=== PATIENT | female | born 1935 | race American Indian/Alaskan Native ===

== ENCOUNTER 2020-08-22 16:52 | Inpatient (IN) | payer MEDICARE ==
[2020-08-22] MEDS ORDERED: ETOMIDATE 20 MG/10 ML INJ IV ONE (17:30)
[2020-08-22] MEDS ORDERED: SUCCINYLCHOLINE CHLORIDE 200 MG/10 ML INJ MDV ONE ×2 (17:30)
[2020-08-22] MEDS ORDERED: DEXTROSE 50% IN WATER (25GM) 50 ML SYRINGE IV ONE (17:54)
--- NOTE | 2020-08-22 18:05 | Emergency Department Report ---
HPI - General Time Seen by Provider: 08/22/20 17:17 - HPI HPI: Room 23 The patient is an 85-year-old female present with a chief complaint of unresponsiveness. Patient's daughter states she brought the patient to the hospital after instructions from primary physician. The daughter states the patient has been complaining of abdominal pain for 1 day. The patient went to her primary physician's office yesterday and had blood work drawn. Family states he received a call from the primary physician today instructing the patient to come to the ED because she may be "dehydrated." The daughter states no further information was given regarding labs. Upon arrival to the ED the patient was found to be obtunded with agonal respirations as I enter the room. The patient soon lost her pulse and ACLS protocols were initiated. The patient was intubated by myself and with ACLS protocols there was return of spontaneous circulation ED Past Medical Hx - Past Medical History Hx Hypertension: Yes Hx CVA: Yes (2007) Hx Seizures: Yes Hx Dementia: Yes Additional medical history: Hypothyroidism, Depression, Hypokalemia - Surgical History Past Surgical History?: No - Family History Family history: no significant - Social History Smoking Status: Never Smoker Substance Use Type: None - Medications Home Medications: Home Medications Medication Instructions Recorded Confirmed Last Taken Type Levothyroxine [Synthroid] 50 mcg PO QAM 11/29/17 11/29/17 11/28/17 06:00 History Sertraline [Zoloft] 50 mg PO QDAY 11/29/17 11/29/17 11/28/17 History amLODIPine 5 mg pe PO QDAY 11/29/17 11/29/17 11/29/17 History Aspirin 81 mg PO DAILY #30 tab.chew 12/01/17 Unknown Rx Phenytoin [Dilantin] 100 mg PO Q8HR #60 capsule 12/01/17 Unknown Rx ED Review of Systems ROS: Stated complaint: ABDOMINAL PAIN Other details as noted in HPI Comment: Unobtainable due to pts medical conditions Physical Exam - Physical Exam Physical Exam: GENERAL: The patient is well-developed well-nourished elderly female lying on stretcher with agonal respirations. [] HEENT: Normocephalic. Atraumatic. NECK: Supple. Trachea midline CHEST/LUNGS: Clear to auscultation. Agonal respirations HEART/CARDIOVASCULAR: Regular. There is bradycardia at 44 bpm on the monitor. There is no gallop rub or murmur. ABDOMEN: Abdomen is soft, nontender. Patient has normal bowel sounds. There is no abdominal distention. SKIN: There is no rash. There is no edema. There is no diaphoresis. NEURO: GCS 3 with agonal respirations MUSCULOSKELETAL: There is no evidence of acute injury. ED Course - Consultations Consultation #1: 08/22/20 21:11 Surgery paged 08/22/20 21:[address] with surgeon Dr[address] Cortez - Central Line Placement Right Femoral Consent Obtained: emergent situation Time Out Performed: No Patient Placed on Monitor/Pulse Ox: Yes MD Prep: mask, gloves Central Line Prep: Chlorhexidine scrub Ultrasound Used for Placement: No Central Line Lumen Inserted: triple Reason for Insertion: Emergency Venous Access Bloods Obtained for Lab: No Central Line Position: good blood return Dressing Applied: Tegaderm Patient Tolerated Procedure: no complications Complications: none - Intubation Time Out Performed: No Laryngoscope: Linda Size: 3 ET Tube Size: 7 Tube Secured Depth (cm): 21 Tube Secured Location: lips Tube Placement Confirmation: equal breath sounds bilat, no breath sounds over epi Patient Tolerated Procedure: no complications Intubation Complications: none ED Medical Decision Making - Lab Data Result diagrams: 08/22/20 18:17 08/22/20 18:17 Laboratory Tests 08/22/20 08/22/20 08/22/20 17:46 17:53 18:17 WBC 7.9 RBC 3.60 L Hgb 10.9 Hct 33.0 MCV 92 MCH 30 MCHC 33 RDW 14.6 Plt Count 97 L Add Manual Diff Complete Total Counted 100 Seg Neuts % (Manual) 80.0 H Lymphocytes % (Manual) 13.0 L Monocytes % (Manual) 7.0 Nucleated RBC % Not Reportable Seg Neutrophils # Man 6.3 Band Neutrophils # 0.0 Lymphocytes # (Manual) 1.0 L Abs React Lymphs (Man) 0.0 Monocytes # (Manual) 0.6 Eosinophils # (Manual) 0.0 Basophils # (Manual) 0.0 Metamyelocytes # 0.0 Myelocytes # 0.0 Promyelocytes # 0.0 Blast Cells # 0.0 WBC Morphology Not Reportable Hypersegmented Neuts Not Reportable Hyposegmented Neuts Not Reportable Hypogranular Neuts Not Reportable Smudge Cells Not Reportable Toxic Granulation Not Reportable Toxic Vacuolation Not Reportable Dohle Bodies Not Reportable Pelger-Huet Anomaly Not Reportable Edouard Rods Not Reportable Platelet Estimate Not Reportable Clumped Platelets Not Reportable Plt Clumps, EDTA Not Reportable Large Platelets Not Reportable Giant Platelets Not Reportable Platelet Satelliting Not Reportable Plt Morphology Comment Not Reportable RBC Morphology Normal Dimorphic RBCs Not Reportable Polychromasia Not Reportable Hypochromasia Not Reportable Poikilocytosis Not Reportable Anisocytosis Not Reportable Microcytosis Not Reportable Macrocytosis Not Reportable Spherocytes Not Reportable Pappenheimer Bodies Not Reportable Sickle Cells Not Reportable Target Cells Not Reportable Tear Drop Cells Not Reportable Ovalocytes Not Reportable Helmet Cells Not Reportable Jimenez-Mcgovern Bodies Not Reportable [place] Rings Not Reportable [place] Cells Not Reportable Bite Cells Not Reportable Crenated Cell Not Reportable Elliptocytes Not Reportable Acanthocytes (Spur) Not Reportable Rouleaux Not Reportable Hemoglobin C Crystals Not Reportable Schistocytes Not Reportable Malaria parasites Not Reportable Reginaldo Bodies Not Reportable Hem Pathologist Commnt No PT INR APTT Sodium Potassium Chloride Carbon Dioxide Anion Gap BUN Creatinine Estimated GFR BUN/Creatinine Ratio Glucose POC Glucose < 10 L < 10 L Lactic Acid Calcium Total Bilirubin AST ALT Alkaline Phosphatase Total Creatine Kinase CK-MB (CK-2) CK-MB (CK-2) Rel Index Troponin T NT-Pro-B Natriuret Pep Total Protein Albumin Albumin/Globulin Ratio Lipase TSH Free T4 Urine Color Urine Turbidity Urine pH Ur Specific Gaastra Urine Protein Urine Glucose (UA) Urine Ketones Urine Blood Urine Nitrite Urine Bilirubin Urine Urobilinogen Ur Leukocyte Esterase Urine WBC (Auto) Urine RBC (Auto) U Epithel Cells (Auto) Urine Bacteria (Auto) Urine WBC Clumps Urine Mucus Urine Yeast (Budding) Phenytoin 08/22/20 08/22/20 08/22/20 18:17 18:17 18:17 WBC RBC Hgb Hct MCV MCH MCHC RDW Plt Count Add Manual Diff Total Counted Seg Neuts % (Manual) Lymphocytes % (Manual) Monocytes % (Manual) Nucleated RBC % Seg Neutrophils # Man Band Neutrophils # Lymphocytes # (Manual) Abs React Lymphs (Man) Monocytes # (Manual) Eosinophils # (Manual) Basophils # (Manual) Metamyelocytes # Myelocytes # Promyelocytes # Blast Cells # WBC Morphology Hypersegmented Neuts Hyposegmented Neuts Hypogranular Neuts Smudge Cells Toxic Granulation Toxic Vacuolation Dohle Bodies Pelger-Huet Anomaly Edouard Rods Platelet Estimate Clumped Platelets Plt Clumps, EDTA Large Platelets Giant Platelets Platelet Satelliting Plt Morphology Comment RBC Morphology Dimorphic RBCs Polychromasia Hypochromasia Poikilocytosis Anisocytosis Microcytosis Macrocytosis Spherocytes Pappenheimer Bodies Sickle Cells Target Cells Tear Drop Cells Ovalocytes Helmet Cells Jimenez-Mcgovern Bodies [place] Rings Michelle Cells Bite Cells Crenated Cell Elliptocytes Acanthocytes (Spur) Rouleaux Hemoglobin C Crystals Schistocytes Malaria parasites Reginaldo Bodies Hem Pathologist Commnt PT 34.0 H INR 3.35 H APTT 190.7 H* Sodium 141 Potassium 4.3 Chloride 94.7 L Carbon Dioxide 13 L Anion Gap 38 BUN 49 H Creatinine 3.4 H Estimated GFR 15 BUN/Creatinine Ratio 14 Glucose 808 H* POC Glucose Lactic Acid 14.10 H* Calcium 7.3 L Total Bilirubin 0.70 AST 253 H ALT 119 H Alkaline Phosphatase 145 H Total Creatine Kinase 364 H CK-MB (CK-2) 6.6 H CK-MB (CK-2) Rel Index 1.8 Troponin T 0.026 NT-Pro-B Natriuret Pep 3839 H Total Protein 4.5 L Albumin 2.3 L Albumin/Globulin Ratio 1.0 Lipase 10 L TSH Free T4 Urine Color Urine Turbidity Urine pH Ur Specific Gaastra Urine Protein Urine Glucose (UA) Urine Ketones Urine Blood Urine Nitrite Urine Bilirubin Urine Urobilinogen Ur Leukocyte Esterase Urine WBC (Auto) Urine RBC (Auto) U Epithel Cells (Auto) Urine Bacteria (Auto) Urine WBC Clumps Urine Mucus Urine Yeast (Budding) Phenytoin 08/22/20 08/22/20 08/22/20 18:17 18:17 19:08 WBC RBC Hgb Hct MCV MCH MCHC RDW Plt Count Add Manual Diff Total Counted Seg Neuts % (Manual) Lymphocytes % (Manual) Monocytes % (Manual) Nucleated RBC % Seg Neutrophils # Man Band Neutrophils # Lymphocytes # (Manual) Abs React Lymphs (Man) Monocytes # (Manual) Eosinophils # (Manual) Basophils # (Manual) Metamyelocytes # Myelocytes # Promyelocytes # Blast Cells # WBC Morphology Hypersegmented Neuts Hyposegmented Neuts Hypogranular Neuts Smudge Cells Toxic Granulation Toxic Vacuolation Dohle Bodies Pelger-Huet Anomaly Edouard Rods Platelet Estimate Clumped Platelets Plt Clumps, EDTA Large Platelets Giant Platelets Platelet Satelliting Plt Morphology Comment RBC Morphology Dimorphic RBCs Polychromasia Hypochromasia Poikilocytosis Anisocytosis Microcytosis Macrocytosis Spherocytes Pappenheimer Bodies Sickle Cells Target Cells Tear Drop Cells Ovalocytes Helmet Cells Jimenez-Mcgovern Bodies [place] Rings Michelle Cells Bite Cells Crenated Cell Elliptocytes Acanthocytes (Spur) Rouleaux Hemoglobin C Crystals Schistocytes Malaria parasites Reginaldo Bodies Hem Pathologist Commnt PT INR APTT Sodium Potassium Chloride Carbon Dioxide Anion Gap BUN Creatinine Estimated GFR BUN/Creatinine Ratio Glucose POC Glucose Lactic Acid 13.00 H* Calcium Total Bilirubin AST ALT Alkaline Phosphatase Total Creatine Kinase CK-MB (CK-2) CK-MB (CK-2) Rel Index Troponin T NT-Pro-B Natriuret Pep Total Protein Albumin Albumin/Globulin Ratio Lipase TSH 11.260 H Free T4 0.90 Urine Color Urine Turbidity Urine pH Ur Specific Gaastra Urine Protein Urine Glucose (UA) Urine Ketones Urine Blood Urine Nitrite Urine Bilirubin Urine Urobilinogen Ur Leukocyte Esterase Urine WBC (Auto) Urine RBC (Auto) U Epithel Cells (Auto) Urine Bacteria (Auto) Urine WBC Clumps Urine Mucus Urine Yeast (Budding) Phenytoin 1.8 L 08/22/20 08/22/20 21:11 Unknown WBC RBC Hgb Hct MCV MCH MCHC RDW Plt Count Add Manual Diff Total Counted Seg Neuts % (Manual) Lymphocytes % (Manual) Monocytes % (Manual) Nucleated RBC % Seg Neutrophils # Man Band Neutrophils # Lymphocytes # (Manual) Abs React Lymphs (Man) Monocytes # (Manual) Eosinophils # (Manual) Basophils # (Manual) Metamyelocytes # Myelocytes # Promyelocytes # Blast Cells # WBC Morphology Hypersegmented Neuts Hyposegmented Neuts Hypogranular Neuts Smudge Cells Toxic Granulation Toxic Vacuolation Dohle Bodies Pelger-Huet Anomaly Edouard Rods Platelet Estimate Clumped Platelets Plt Clumps, EDTA Large Platelets Giant Platelets Platelet Satelliting Plt Morphology Comment RBC Morphology Dimorphic RBCs Polychromasia Hypochromasia Poikilocytosis Anisocytosis Microcytosis Macrocytosis Spherocytes Pappenheimer Bodies Sickle Cells Target Cells Tear Drop Cells Ovalocytes Helmet Cells Jimenez-Mcgovern Bodies [place] Rings Michelle Cells Bite Cells Crenated Cell Elliptocytes Acanthocytes (Spur) Rouleaux Hemoglobin C Crystals Schistocytes Malaria parasites Reginaldo Bodies Hem Pathologist Commnt PT INR APTT Sodium Potassium Chloride Carbon Dioxide Anion Gap BUN Creatinine Estimated GFR BUN/Creatinine Ratio Glucose POC Glucose Lactic Acid 10.50 H* Calcium Total Bilirubin AST ALT Alkaline Phosphatase Total Creatine Kinase CK-MB (CK-2) CK-MB (CK-2) Rel Index Troponin T NT-Pro-B Natriuret Pep Total Protein Albumin Albumin/Globulin Ratio Lipase TSH Free T4 Urine Color Jennifer Urine Turbidity Cloudy Urine pH 5.0 Ur Specific Gaastra 1.017 Urine Protein 100 mg/dl Urine Glucose (UA) Neg Urine Ketones Neg Urine Blood Sm Urine Nitrite Neg Urine Bilirubin Neg Urine Urobilinogen 4.0 Ur Leukocyte Esterase Neg Urine WBC (Auto) 30.0 H Urine RBC (Auto) 22.0 U Epithel Cells (Auto) 24.0 H Urine Bacteria (Auto) 1+ Urine WBC Clumps 2+ Urine Mucus 2+ Urine Yeast (Budding) 2+ Phenytoin - EKG Data -: EKG Interpreted by Me EKG shows normal: sinus rhythm Rate: normal - EKG Data When compared to previous EKG there are: previous EKG unavailable Interpretation: nonspecific ST-T wave [place] - Radiology Data Radiology results: report reviewed (Chest x-ray, CT abdomen pelvis), image reviewed (Chest x-ray, CT abdomen pelvis) interpreted by me: Chest x-ray-ET tube in appropriate position. No pneumothorax. No foreign body seen [facility] [address] [place] [address] Cat Scan Report Signed Patient: CAMACHO CORDON MR#: [id number] 4 : 1935 Acct:[id number] Age/Sex: 85 / F ADM Date: 08/22/20 Loc: ED Attending Dr: Ordering Physician: ANNY BARRETT MD Date of Service: 08/22/20 Procedure(s): CT abdomen pelvis wo con Accession Number(s): [id number] cc: ANNY BARRETT MD CT ABDOMEN AND PELVIS WITHOUT CONTRAST INDICATION / CLINICAL INFORMATION: Free air on chest x-ray, status post cardiac arrest. TECHNIQUE: Axial CT images were obtained through the abdomen and pelvis without IV contrast. All CT scans at this location are performed using CT dose reduction for ALARA by means of automated exposure control. COMPARISON: Chest radiograph earlier on the same date FINDINGS: LOWER CHEST: Bibasilar bronchiectasis with bibasilar airspace disease and small left pleural effusion. LIVER: Small simple appearing cyst and benign calcified granuloma. GALLBLADDER: Numerous small calcified gallstones filling the gallbladder but no wall thickening or inflammation. BILE DUCTS: No significant abnormality. PANCREAS: No significant abnormality. SPLEEN: Calcified granulomas but no significant abnormality. ADRENALS: No significant abnormality. RIGHT KIDNEY / URETER: No significant abnormality. LEFT KIDNEY / URETER: No significant abnormality. STOMACH / SMALL BOWEL: Esophagogastric tube is present in the stomach. Fluid-filled, mildly thickened small bowel loops without obstruction. There is some twisting of the mesentery in the left midabdomen. No site of perforation identified. COLON: Moderately distended colon containing material. No site of perforation identified. APPENDIX: Not visualized. PERITONEUM: Small to moderate amount of free fluid in the abdomen and pelvis. Moderate to large amount of free air in the anterior abdominal cavity. No fluid collection. LYMPH NODES: No significant adenopathy. AORTA / ARTERIES: Moderate atherosclerotic calcification without acute abnormality. Mild aneurysmal dilatation of the mid infrarenal abdominal aorta measuring 3.1 cm in greatest AP dimension. IVC / VEINS: Right femoral venous catheter is present in the right common femoral vein. URINARY BLADDER: Contracted around a Siddiqui catheter. REPRODUCTIVE ORGANS: Uterus is absent. No significant adnexal abnormality. ADDITIONAL FINDINGS: None. SKELETAL SYSTEM: No significant abnormality. IMPRESSION: 1. Moderate to large amount of free air in the abdominal cavity without definite source identified. This degree of free air suggests bowel perforation of undetermined location. 2. Twisting of the mesentery in the left midabdomen could represent internal hernia. No definite bowel obstruction. 3. Moderate amount of free fluid throughout the abdomen. 4. Bibasilar airspace disease with small left pleural effusion. Signer Name: Avi Bullard MD Signed: 08/22/2020 9:19 PM Workstation Name: [id number] Transcribed By: KELLEN Dictated By: Elpidio Bullard MD Electronically Authenticated By: Elpidio Bullard MD Signed Date/Time: 08/22/202118 DD/ 10 TD/TT: Print [facility] [address] [place] [address] XRay Report Signed Patient: CAMACHO CORDON MR#: [id number] 4 : 1935 Acct:[id number] Age/Sex: 85 / F ADM Date: 08/22/20 Loc: ED Attending Dr: Ordering Physician: ANNY BARRETT MD Date of Service: 08/22/20 Procedure(s): XR chest 1V ap Accession Number(s): [id number] cc: ANNY BARRETT MD Fluoro Time In Minutes: CHEST 1 VIEW 08/22/2020 5:38 PM INDICATION / CLINICAL INFORMATION: Card iac arrest status post intubation. COMPARISON: 06/03/20 FINDINGS: SUPPORT DEVICES: Endotracheal tube has been placed with the tip 1.3 cm above the andrae. Esophagogastric tube has been placed below the diaphragm into the stomach. HEART / MEDIASTINUM: Stable. LUNGS / PLEURA: Patchy bilateral pulmonary opacities. No pneumothorax. ADDITIONAL FINDINGS: Moderate amount of free air in the upper abdomen beneath the hemidiaphragm. IMPRESSION: 1. Endotracheal tube in expected position. 2. CRITICAL RESULT Time of Discovery (LAP WELDER/CDT): 5:45 PM Time of Communication (LAP WELDER/CDT): 5:50 PM Licensed Practitioner Receiving Report: Dr. Barrett Signer Name: Avi Bullard MD Signed: 08/22/2020 6:49 PM Workstation Name: [id number] Transcribed By: DT Dictated By: Elpidio Bullard MD Electronically Authenticated By: Elpidio Bullard MD Signed Date/Time: 08/22/201848 DD/ 46 TD/TT: Print Cancel - Differential Diagnosis Cardiac arrest, acute renal failure, hypoglycemia Critical care attestation.: If time is entered above; I have spent that time in minutes in the direct care of this critically ill patient, excluding procedure time. ED Disposition Clinical Impression: Cardiac arrest, Bowel perforation, Pneumonia Disposition: [id number] OP ADMIT IP TO THIS HOSP Is pt being admited?: Yes Does the pt Need Aspirin: No Condition: Serious Instructions: Bacterial Pneumonia (ED) Time of Disposition: 22:03 (Hospitalist notified (Dr Matthew))
[2020-08-22] MEDS ORDERED: SODIUM CHLORIDE 0.9% 1000 ML 1,000 ML ONE ×2 (18:12→18:40)
[2020-08-22 18:44] LABS: Albumin 2.3 g/dL (3.9-5)
[2020-08-22] MEDS ORDERED: SODIUM CHLORIDE 0.9% 1000 ML 1,000 ML IV ONE ×2 (18:45→18:46)
[2020-08-22 18:51] LABS: INR 3.35 (0.87-1.13)
--- NOTE | 2020-08-22 18:54 | XRay Report ---
CHEST 1 VIEW 08/22/2020 5:38 PM INDICATION / CLINICAL INFORMATION: Cardiac arrest status post intubation. COMPARISON: 06/03/20 FINDINGS: SUPPORT DEVICES: Endotracheal tube has been placed with the tip 1.3 cm above the andrae. Esophagogast kanwal tube has been placed below the diaphragm into the stomach. HEART / MEDIASTINUM: Stable. LUNGS / PLEURA: Patchy bilateral pulmonary opacities. No pneumothorax. ADDITIONAL FINDINGS: Moderate amount of free air in the upper abdomen beneath the hemidiaphragm. IMPRESSION: 1. Endotracheal tube in expected position. 2. CRITICAL RESULT Time of Discovery (DYE WEIGHER HELPER/CDT): 5:45 PM Time of Communication (DYE WEIGHER HELPER/CDT): 5:50 PM Licensed Practitioner Receiving Report: Dr. Triana Signer Name: Avi Bullard MD Signed: 08/22/2020 6:49 PM Workstation Name: [id number]
[2020-08-22 18:55] LABS: Free T4 (Free Thyroxine) 0.9 ng/dL (0.76-1.46)
[2020-08-22 18:57] LABS: Hemoglobin 10.9 gm/dl (10.1-14.3); Mean Corpuscular HGB Conc 33 % (30-34); Mean Corpuscular Volume 92 fl (79-97); Platelet Count 97 K/mm3 (140-440); Red Cell Distribution Width 14.6 % (13.2-15.2)
[2020-08-22] MEDS ORDERED: DOPamine/D5W 800 MG/250 ML 800 MG/250 ML BAG IV ONE (18:57)
[2020-08-22] MEDS ORDERED: NORepinephrine/NS 4 MG-250 ML 4 MG/250 ML BAG IV SCH (19:00)
[2020-08-22] MEDS ORDERED: cefTRIAXone/NS 1 GM/50 ML 1 GM/50 ML BAG IV ONE (19:04)
[2020-08-22 19:12] LABS: Calcium 7.3 mg/dL (8.4-10.2); Creatine Kinase MB 6.6 ng/mL (0.0-4.0)
[2020-08-22] MEDS ORDERED: VASOPRESSIN 20 UNIT in SODIUM CHLORIDE 0.9% 100 ML IV ONE (19:18)
[2020-08-22 19:19] LABS: Bacteria,Urine 1+ /HPF (Negative); Bilirubin,Urine NEG (Negative); Blood,Urine SM (Negative); Color,Urine Amber (Yellow); Mucus,Urine 2+ /HPF
[2020-08-22 19:24] LABS: Partial Thromboplastin Time 190.7 Sec. (24.2-36.6)
[2020-08-22 19:35] LABS: RBC Morphology Normal; Total Cells Counted 100
[2020-08-22] MEDS ORDERED: AMIODARONE 150 MG in DEXTROSE 5% IN WATER 97 ML IV ONE (21:09)
--- NOTE | 2020-08-22 21:24 | Cat Scan Report ---
CT ABDOMEN AND PELVIS WITHOUT CONTRAST INDICATION / CLINICAL INFORMATION: Free air on chest x-ray, status post cardiac arrest. TECHNIQUE: Axial CT images were obtained through the abdomen and pelvis without IV contrast. All CT scans at this location are performed using CT dose reduction for ALARA by means of automated exposure control. COMPARISON: Chest radiograph earlier on the same date FINDINGS: LOWER CHEST: Bibasilar bronchiectasis with bibasilar airspace disease and small left pleural effusion . LIVER: Small simple appearing cyst and benign calcified granuloma. GALLBLADDER: Numerous small calcified gallstones filling the gallbladder but no wall thickening or in flammation. BILE DUCTS: No significant abnormality. PANCREAS: No significant abnormality. SPLEEN: Calcified granulomas but no significant abnormality. ADRENALS: No significant abnormality. RIGHT KIDNEY / URETER: No significant abnormality. LEFT KIDNEY / URETER: No significant abnormality. STOMACH / SMALL BOWEL: Esophagogastric tube is present in the stomach. Fluid-filled, mildly thickened small bowel loops without obstruction. There is some twisting of the mesentery in the left midabdome n. No site of perforation identified. COLON: Moderately distended colon containing material. No site of perforation identified. APPENDIX: Not visualized. PERITONEUM: Small to moderate amount of free fluid in the abdomen and pelvis. Moderate to large amoun t of free air in the anterior abdominal cavity. No fluid collection. LYMPH NODES: No significant adenopathy. AORTA / ARTERIES: Moderate atherosclerotic calcification without acute abnormality. Mild aneurysmal d ilatation of the mid infrarenal abdominal aorta measuring 3.1 cm in greatest AP dimension. IVC / VEINS: Right femoral venous catheter is present in the right common femoral vein. URINARY BLADDER: Contracted around a Siddiqui catheter. REPRODUCTIVE ORGANS: Uterus is absent. No significant adnexal abnormality. ADDITIONAL FINDINGS: None. SKELETAL SYSTEM: No significant abnormality. IMPRESSION: 1. Moderate to large amount of free air in the abdominal cavity without definite source identified. T his degree of free air suggests bowel perforation of undetermined location. 2. Twisting of the mesentery in the left midabdomen could represent internal hernia. No definite kathleen l obstruction. 3. Moderate amount of free fluid throughout the abdomen. 4. Bibasilar airspace disease with small left pleural effusion. Signer Name: Avi Bullard MD Signed: 08/22/2020 9:19 PM Workstation Name: [id number]
[2020-08-22] MEDS ORDERED: metroNIDAZOLE/NS 500 MG/100 ML 500 MG/100 ML BAG IV ONE (21:28)
[2020-08-22] MEDS ORDERED: FOSPHENYTOIN 1,000 MG.PE in SODIUM CHLORIDE 0.9% 100 ML IV ONE (21:56)
[2020-08-22] MEDS ORDERED: AMIODARONE 900 MG in DEXTROSE 5% IN WATER 482 ML IV SCH (22:00)
[2020-08-22] MEDS ORDERED: ONDANSETRON 4 MG/2 ML INJ IV PRN (22:11)
[2020-08-22] MEDS ORDERED: ACETAMINOPHEN 325 MG TAB PO PRN ×2 (22:11→22:32)
[2020-08-22] MEDS ORDERED: ALBUTEROL 2.5 MG/3 ML NEBU IH PRN (22:11)
[2020-08-22] MEDS ORDERED: hydrALAZINE 20 MG/1 ML INJ IV PRN (22:14)
[2020-08-22] MEDS ORDERED: SODIUM CHLORIDE 0.9% 1000 ML 1,000 ML IV SCH (22:15)
--- NOTE | 2020-08-22 22:21 | History and Physical Report ---
History of Present Illness Date of examination: 08/22/20 Date of admission: 08/22/20 Chief complaint: Unresponsiveness Cardiac arrest History of present illness: 85-year-old female with past medical history of hypertension, CVA, seizure dementia hypothyroidism depression and hypokalemia was brought to the emergency room because of unresponsiveness. Patient's daughter states she brought the patient to the hospital after instructions from primary physician. The daughter states the patient has been complaining of abdominal pain for 1 day. The patient went to her primary physician's office yesterday and had blood work drawn. Family states he received a call from the primary physician today instructing the patient to come to the ED because she may be "dehydrated." The daughter states no further information was given regarding labs. Upon arrival to the ED the patient was found to be obtunded with agonal respirations as I enter the room. The patient soon lost her pulse and ACLS protocols were initiated. The patient was intubated by myself and with ACLS protocols there was return of spontaneous circulation In the emergency room patient is found to have BUN of 49 creatinine 3.4, glucose [address] scan of the abdomen pelvis showed moderate to large amount of free air in the abdominal cavity without definitive source of identifi ed this degree of free air suggest bowel perforation of undetermined location #2 twisting of the mesentery in the left midabdomen could represent internal hernia no definite bowel obstruction #3 moderate amount of free fluid throughout the abdomen #4 bibasilar airspace disease with small left pleural effusion Past History Past Medical History: hypertension, hypothyroidism (Depression hypokalemia dementia), seizures, stroke Medications and Allergies Allergies Allergy/AdvReac Type Severity Reaction Status Date / Time No Known Allergies Allergy Verified 11/28/17 22:19 Home Medications Medication Instructions Recorded Confirmed Last Taken Type Levothyroxine [Synthroid] 50 mcg PO QAM 11/29/17 11/29/17 11/28/17 06:00 History Sertraline [Zoloft] 50 mg PO QDAY 11/29/17 11/29/17 11/28/17 History amLODIPine 5 mg pe PO QDAY 11/29/17 11/29/17 11/29/17 History Aspirin 81 mg PO DAILY #30 tab.chew 12/01/17 Unknown Rx Phenytoin [Dilantin] 100 mg PO Q8HR #60 capsule 12/01/17 Unknown Rx Active Meds: Active Medications Acetaminophen (Acetaminophen 325 Mg Tab) 650 mg PO Q4H PRN PRN Reason: Pain MILD(1-3)/Fever >100.5/BALTAZAR Albuterol (Albuterol 2.5 Mg/3 Ml Nebu) 2.5 mg IH Q4HRT PRN PRN Reason: Shortness Of Breath Albuterol/Ipratropium (Ipratropium/Albuterol Sulfate 3 Ml Ampul.Neb) 1 ampul IH Q6HRT ANUM Amlodipine Besylate (Amlodipine 5 Mg Tab) mg PO QDAY ANUM Hydralazine HCl (Hydralazine 20 Mg/1 Ml Inj) 10 mg IV Q6H PRN PRN Reason: Blood Pressure Dopamine HCl/Dextrose (Intropin Drip 800 Mg/D5w 250 Ml) 800 mg in 250 mls @ 5 .103 mls/hr IV TITR ONE; Protocol Stop: 08/24/20 19:56 Last Admin: 08/22/20 18:00 Dose: 20 mcg/kg/min, 10.206 mls/hr Documented by: Norepinephrine (Levophed Drip 4 Mg/Ns 250 Ml) 4 mg in 250 mls @ 7.5 mls/hr IV TITR ANUM; Protocol Last Admin: 08/22/20 18:57 Dose: 8 mcg/min, 30 mls/hr Documented by: Vasopressin 20 unit/ Sodium (Chloride) 101 mls @ 9.09 mls/hr IV TITR ONE; Protocol Stop: 08/23/20 06:24 Last Admin: 08/22/20 20:07 Dose: 0.03 units/min, 9.09 mls/hr Documented by: Amiodarone HCl 900 mg/ (Dextrose) 500 mls @ 33.333 mls/hr IV DIRECT ANUM; Protocol Fosphenytoin Sodium 1,000 mg. (pe/ Sodium Chloride) 120 mls @ 200 mls/hr IV ONCE ONE Stop: 08/22/20 22:31 Sodium Chloride (Nacl 0.9% 1000 Ml) 1,000 mls @ 100 mls/hr IV DIRECT ANUM Ceftriaxone Sodium (Rocephin/Ns 2 Gm/100 Ml) 2 gm in 100 mls @ 200 mls/hr IV Q24H ANUM; Protocol Azithromycin (Zithromax/Ns) 500 mg in 250 mls @ 250 mls/hr IV Q24H ANUM; Protocol Piperacillin Sod/Tazobactam Sod (Zosyn/Ns 4.5gm/100ml) 4.5 gm in 100 mls @ 200 mls/hr IV Q8H ANUM; Protocol Metronidazole (Flagyl 500 Mg/100 Ml) 500 mg in 100 mls @ 200 mls/hr IV Q8H ANUM; Protocol Levothyroxine Sodium (Levothyroxine 50 Mcg Tab) 50 mcg PO QAM ANUM Ondansetron HCl (Ondansetron 4 Mg/2 Ml Inj) 4 mg IV Q8H PRN PRN Reason: Nausea And Vomiting Pantoprazole Sodium (Pantoprazole 40 Mg Inj) 40 mg IV BID ANUM Phenytoin (Phenytoin 100 Mg Capsule.Er) 100 mg PO Q8HR ANUM Sertraline HCl (Sertraline 50 Mg Tab) 50 mg PO QDAY ANUM Sodium Chloride (Sodium Chloride 0.9% 10 Ml Flush Syringe) 10 ml IV BID ANUM Sodium Chloride (Sodium Chloride 0.9% 10 Ml Flush Syringe) 10 ml IV PRN PRN PRN Reason: LINE FLUSH Review of Systems Constitutional: lethargy Gastrointestinal: abdominal pain Exam - Constitutional Vitals: Temp Pulse Resp BP Pulse Ox 98.2 F 84 14 119/35 96 08/22/20 18:45 08/22/20 20:00 08/22/20 20:00 08/22/20 20:00 08/22/20 20:00 General appearance: Present: severe distress, cachectic - EENT Eyes: Present: PERRL ENT: hearing intact, clear oral mucosa - Neck Neck: Present: supple, normal ROM - Respiratory Respiratory effort: normal Respiratory: bilateral: diminished - Cardiovascular Heart Sounds: Present: S1 & S2. Absent: rub, click - Extremities Extremities: pulses symmetrical, No edema Peripheral Pulses: within normal limits - Abdominal General gastrointestinal: Present: soft, non-tender, non-distended, normal bowel sounds Female genitourinary: Present: normal - Integumentary Integumentary: Present: clear, warm, dry - Musculoskeletal Musculoskeletal: gait normal, strength equal bilaterally - Psychiatric Psychiatric: appropriate mood/affect, intact judgment & insight - Neurologic Neurologic: CNII-XII intact, moves all extremities HEART Score - HEART Score Troponin: Troponin T 0.026 ng/mL (0.00-0.029) 08/22/20 18:17 Results - Labs CBC & Chem 7: 08/22/20 18:17 08/22/20 18:17 Labs: Laboratory Last Values WBC 7.9 K/mm3 (4.5-11.0) 08/22/20 18:17 RBC 3.60 M/mm3 (3.65-5.03) L 08/22/20 18:17 Hgb 10.9 gm/dl (10.1-14.3) 08/22/20 18:17 Hct 33.0 % (30.3-42.9) 08/22/20 18:17 MCV 92 fl (79-97) 08/22/20 18:17 MCH 30 pg (28-32) 08/22/20 18:17 MCHC 33 % (30-34) 08/22/20 18:17 RDW 14.6 % (13.2-15.2) 08/22/20 18:17 Plt Count 97 K/mm3 (140-440) L 08/22/20 18:17 Add Manual Diff Complete 08/22/20 18:17 Total Counted 100 08/22/20 18:17 Seg Neuts % (Manual) 80.0 % (40.0-70.0) H 08/22/20 18:17 Lymphocytes % (Manual) 13.0 % (13.4-35.0) L 08/22/20 18:17 Monocytes % (Manual) 7.0 % (0.0-7.3) 08/22/20 18:17 Nucleated RBC % Not Reportable 08/22/20 18:17 Seg Neutrophils # Man 6.3 K/mm3 (1.8-7.7) 08/22/20 18:17 Band Neutrophils # 0.0 K/mm3 08/22/20 18:17 Lymphocytes # (Manual) 1.0 K/mm3 (1.2-5.4) L 08/22/20 18:17 Abs React Lymphs (Man) 0.0 K/mm3 08/22/20 18:17 Monocytes # (Manual) 0.6 K/mm3 (0.0-0.8) 08/22/20 18:17 Eosinophils # (Manual) 0.0 K/mm3 (0.0-0.4) 08/22/20 18:17 Basophils # (Manual) 0.0 K/mm3 (0.0-0.1) 08/22/20 18:17 Metamyelocytes # 0.0 K/mm3 08/22/20 18:17 Myelocytes # 0.0 K/mm3 08/22/20 18:17 Promyelocytes # 0.0 K/mm3 08/22/20 18:17 Blast Cells # 0.0 K/mm3 08/22/20 18:17 WBC Morphology Not Reportable 08/22/20 18:17 Hypersegmented Neuts Not Reportable 08/22/20 18:17 Hyposegmented Neuts Not Reportable 08/22/20 18:17 Hypogranular Neuts Not Reportable 08/22/20 18:17 Smudge Cells Not Reportable 08/22/20 18:17 Toxic Granulation Not Reportable 08/22/20 18:17 Toxic Vacuolation Not Reportable 08/22/20 18:17 Dohle Bodies Not Reportable 08/22/20 18:17 Pelger-Huet Anomaly Not Reportable 08/22/20 18:17 Edouard Rods Not Reportable 08/22/20 18:17 Platelet Estimate Not Reportable 08/22/20 18:17 Clumped Platelets Not Reportable 08/22/20 18:17 Plt Clumps, EDTA Not Reportable 08/22/20 18:17 Large Platelets Not Reportable 08/22/20 18:17 Giant Platelets Not Reportable 08/22/20 18:17 Platelet Satelliting Not Reportable 08/22/20 18:17 Plt Morphology Comment Not Reportable 08/22/20 18:17 RBC Morphology Normal 08/22/20 18:17 Dimorphic RBCs Not Reportable 08/22/20 18:17 Polychromasia Not Reportable 08/22/20 18:17 Hypochromasia Not Reportable 08/22/20 18:17 Poikilocytosis Not Reportable 08/22/20 18:17 Anisocytosis Not Reportable 08/22/20 18:17 Microcytosis Not Reportable 08/22/20 18:17 Macrocytosis Not Reportable 08/22/20 18:17 Spherocytes Not Reportable 08/22/20 18:17 Pappenheimer Bodies Not Reportable 08/22/20 18:17 Sickle Cells Not Reportable 08/22/20 18:17 Target Cells Not Reportable 08/22/20 18:17 Tear Drop Cells Not Reportable 08/22/20 18:17 Ovalocytes Not Reportable 08/22/20 18:17 Helmet Cells Not Reportable 08/22/20 18:17 [place] Bodies Not Reportable 08/22/20 18:17 [place] Rings Not Reportable 08/22/20 18:17 Lloyd Cells Not Reportable 08/22/20 18:17 Bite Cells Not Reportable 08/22/20 18:17 Crenated Cell Not Reportable 08/22/20 18:17 Elliptocytes Not Reportable 08/22/20 18:17 Acanthocytes (Spur) Not Reportable 08/22/20 18:17 Rouleaux Not Reportable 08/22/20 18:17 Hemoglobin C Crystals Not Reportable 08/22/20 18:17 Schistocytes Not Reportable 08/22/20 18:17 Malaria parasites Not Reportable 08/22/20 18:17 Reginaldo Bodies Not Reportable 08/22/20 18:17 Hem Pathologist Commnt No 08/22/20 18:17 PT 34.0 Sec. (12.2-14.9) H 08/22/20 18:17 INR 3.35 (0.87-1.13) H 08/22/20 18:17 APTT 190.7 Sec. (24.2-36.6) H* 08/22/20 18:17 Sodium 141 mmol/L (137-145) 08/22/20 18:17 Potassium 4.3 mmol/L (3.6-5.0) 08/22/20 18:17 Chloride 94.7 mmol/L (98-107) L 08/22/20 18:17 Carbon Dioxide 13 mmol/L (22-30) L 08/22/20 18:17 Anion Gap 38 mmol/L 08/22/20 18:17 BUN 49 mg/dL (7-17) H 08/22/20 18:17 Creatinine 3.4 mg/dL (0.6-1.2) H 08/22/20 18:17 Estimated GFR 15 ml/min 08/22/20 18:17 BUN/Creatinine Ratio 14 % 08/22/20 18:17 Glucose 808 mg/dL (65-100) H* 08/22/20 18:17 POC Glucose < 10 mg/dL (70-105) L 08/22/20 17:53 Lactic Acid 10.50 mmol/L (0.7-2.0) H* 08/22/20 21:11 Calcium 7.3 mg/dL (8.4-10.2) L 08/22/20 18:17 Total Bilirubin 0.70 mg/dL (0.1-1.2) 08/22/20 18:17 AST 253 units/L (5-40) H 08/22/20 18:17 ALT 119 units/L (7-56) H 08/22/20 18:17 Alkaline Phosphatase 145 units/L (35-129) H 08/22/20 18:17 Total Creatine Kinase 364 units/L (30-135) H 08/22/20 18:17 CK-MB (CK-2) 6.6 ng/mL (0.0-4.0) H 08/22/20 18:17 CK-MB (CK-2) Rel Index 1.8 (0-4) 08/22/20 18:17 Troponin T 0.026 ng/mL (0.00-0.029) 08/22/20 18:17 NT-Pro-B Natriuret Pep 3839 pg/mL (0-900) H 08/22/20 18:17 Total Protein 4.5 g/dL (6.3-8.2) L 08/22/20 18:17 Albumin 2.3 g/dL (3.9-5) L 08/22/20 18:17 Albumin/Globulin Ratio 1.0 % 08/22/20 18:17 Lipase 10 units/L (13-60) L 08/22/20 18:17 TSH 11.260 mlU/mL (0.270-4.200) H 08/22/20 18:17 Free T4 0.90 ng/dL (0.76-1.46) 08/22/20 18:17 Urine Color Jennifer (Yellow) 08/22/20 Unknown Urine Turbidity Cloudy (Clear) 08/22/20 Unknown Urine pH 5.0 (5.0-7.0) 08/22/20 Unknown Ur Specific [place] 1.017 (1.003-1.030) 08/22/20 Unknown Urine Protein 100 mg/dl mg/dL (Negative) 08/22/20 Unknown Urine Glucose (UA) Neg mg/dL (Negative) 08/22/20 Unknown Urine Ketones Neg mg/dL (Negative) 08/22/20 Unknown Urine Blood Sm (Negative) 08/22/20 Unknown Urine Nitrite Neg (Negative) 08/22/20 Unknown Urine Bilirubin Neg (Negative) 08/22/20 Unknown Urine Urobilinogen 4.0 mg/dL (<2.0) 08/22/20 Unknown Ur Leukocyte Esterase Neg (Negative) 08/22/20 Unknown Urine WBC (Auto) 30.0 /HPF (0.0-6.0) H 08/22/20 Unknown Urine RBC (Auto) 22.0 /HPF (0.0-6.0) 08/22/20 Unknown U Epithel Cells (Auto) 24.0 /HPF (0-13.0) H 08/22/20 Unknown Urine Bacteria (Auto) 1+ /HPF (Negative) 08/22/20 Unknown Urine WBC Clumps 2+ /HPF 08/22/20 Unknown Urine Mucus 2+ /HPF 08/22/20 Unknown Urine Yeast (Budding) 2+ /HPF 08/22/20 Unknown Phenytoin 1.8 ug/mL (10.0-20.0) L 08/22/20 18:17 Microbiology: Microbiology 08/22/20 18:21 Peripheral/Venous Blood Culture - Preliminary Culture in Progress 08/22/20 18:17 Peripheral/Venous Blood Culture - Preliminary Culture in Progress - Imaging and Cardiology CT scan - abdomen: report reviewed Assessment and Plan VTE prophylaxis?: Mechanical Plan of care discussed with patient/family: Yes - Patient Problems (1) Bowel perforation Current Visit: Yes Status: Acute Plan to address problem: Admit the patient to the ICU. N.p.o. normal saline at the rate of 100 cc/h. Protonix 40 mg IV every 12 hours. Zofran 4 million IV every 6 hours as needed. Zosyn 4.5 g IV every 8 hours. Flagyl 500 mg IV every 8 hours. Will consult surgery for evaluation and possible surgery. We also consult critical care ev aluation (2) Acute metabolic encephalopathy Current Visit: Yes Status: Acute Plan to address problem: Most likely secondary to dehydration cardiac arrest and pneumoperitoneum.N.p.o. normal saline at the rate of 100 cc/h. Protonix 40 mg IV every 12 hours. Zofran 4 million IV every 6 hours as needed. Zosyn 4.5 g IV every 8 hours. Flagyl 500 mg IV every 8 hours. Will consult surgery for evaluation and possible surgery. We also consult critical care evaluation (3) Cardiac arrest Current Visit: Yes Status: Acute Plan to address problem: Lipitor 40 mg p.o. daily. We will hold the aspirin for Pap surgery. Serial troponin echocardiogram and cardiology consult (4) Pneumonia Current Visit: Yes Status: Acute Plan to address problem: Patient is status post intubated. DuoNeb via nebulizer every 4 hours. Albuterol by nebulizer every 4 hours as needed. Zosyn 4.5 g IV every 8 hours. Flagyl 500 mg IV every 8 hours. We do the blood culture sputum culture we also consult critical care evaluation (5) Seizure Current Visit: No Status: Acute Plan to address problem: Stable. We will continue the home medication. We will monitor the patient closely (6) HTN (hypertension) Current Visit: No Status: Chronic Plan to address problem: Hydralazine 10 mg IV every 6 hours as needed. Amlodipine 5 mg p.o. daily. We w ill monitor the blood pressure closely (7) History of CVA (cerebrovascular accident) Current Visit: No Status: Chronic Plan to address problem: Stable we will monitor the patient closely (8) DENISE (acute kidney injury) Current Visit: Yes Status: Acute Plan to address problem: Normal saline at the rate of 100 cc/h. Avoid nephrotoxic drug. Renally dose medication recheck BMP in the morning and renal consult (9) DVT prophylaxis Current Visit: No Status: Acute Plan to address problem: SCD for DVT prophylaxis. Protonix 40 mg IV every 12 hours for GI prophylaxis. Patient is a full code
[2020-08-22] MEDS ORDERED: NITROGLYCERIN 0.4 MG TAB SUBL SL PRN (22:32)
[2020-08-22] MEDS ORDERED: traMADol 50 MG TAB PO PRN (22:32)
[2020-08-22] MEDS ORDERED: DEXTROSE 50% IN WATER (25GM) 50 ML SYRINGE IV PRN (22:40)
--- NOTE | 2020-08-22 22:44 | Consultation ---
History of Present Illness Consult date: 08/22/20 Reason for consult: abdominal pain - History of present illness History of present illness: 85-year-old female who presented to the emergency room with a chief complaint of unresponsiveness. Per the daughter's history the patient was complaining abdominal pain for at least 1 day she had lab work done at her PCP. The PCP instructed the patient based in the results of which we are on sure of to go to the emergency room for dehydration. Upon arrival in the emergency room patient was obtunded and she became pulseless where after she was intubated ACLS protocol was initiated and the pulse was obtained. Patient had a CT scan that showed a significant amount of free air and fluid in her abdomen consistent with a perforation of unknown origin. Past History Past Medical History: hypertension, hypothyroidism (Depression hypokalemia dementia), seizures, stroke Past Surgical History: No surgical history Medications and Allergies Allergies Allergy/AdvReac Type Severity Reaction Status Date / Time No Known Allergies Allergy Verified 11/28/17 22:19 Home Medications Medication Instructions Recorded Confirmed Last Taken Type Levothyroxine [Synthroid] 50 mcg PO QAM 11/29/17 11/29/17 11/28/17 06:00 History Sertraline [Zoloft] 50 mg PO QDAY 11/29/17 11/29/17 11/28/17 History amLODIPine 5 mg pe PO QDAY 11/29/17 11/29/17 11/29/17 History Aspirin 81 mg PO DAILY #30 tab.chew 12/01/17 Unknown Rx Phenytoin [Dilantin] 100 mg PO Q8HR #60 capsule 12/01/17 Unknown Rx Active Meds: Active Medications Acetaminophen (Acetaminophen 325 Mg Tab) 650 mg PO Q4H PRN PRN Reason: Pain MILD(1-3)/Fever >100.5/BALTAZAR Acetaminophen (Acetaminophen 325 Mg Tab) 650 mg PO Q6H PRN PRN Reason: Pain, Mild (1-3) Albuterol (Albuterol 2.5 Mg/3 Ml Nebu) 2.5 mg IH Q4HRT PRN PRN Reason: Shortness Of Breath Albuterol/Ipratropium (Ipratropium/Albuterol Sulfate 3 Ml Ampul.Neb) 1 ampul IH Q6HRT ANUM Amlodipine Besylate (Amlodipine 5 Mg Tab) 5 mg PO QDAY ANUM Atorvastatin Calcium (Atorvastatin 40 Mg Tab) 40 mg PO QHS ANUM Hydralazine HCl (Hydralazine 20 Mg/1 Ml Inj) 10 mg IV Q6H PRN PRN Reason: Blood Pressure Dopamine HCl/Dextrose (Intropin Drip 800 Mg/D5w 250 Ml) 800 mg in 250 mls @ 5.103 mls/hr IV TITR ONE; Protocol Stop: 08/24/20 19:56 Last Admin: 08/22/20 18:00 Dose: 20 mcg/kg/min, 10.206 mls/hr Documented by: Norepinephrine (Levophed Drip 4 Mg/Ns 250 Ml) 4 mg in 250 mls @ 7.5 mls/hr IV TITR ANUM; Protocol Last Admin: 08/22/20 18:57 Dose: 8 mcg/min, 30 mls/hr Documented by: Vasopressin 20 unit/ Sodium (Chloride) 101 mls @ 9.09 mls/hr IV TITR ONE; Protocol Stop: 08/23/20 06:24 Last Admin: 08/22/20 20:07 Dose: 0.03 units/min, 9.09 mls/hr Documented by: Amiodarone HCl 900 mg/ (Dextrose) 500 mls @ 33.333 mls/hr IV DIRECT ANUM; Protocol Sodium Chloride (Nacl 0.9% 1000 Ml) 1,000 mls @ 100 mls/hr IV DIRECT ANUM Ceftriaxone Sodium (Rocephin/Ns 2 Gm/100 Ml) 2 gm in 100 mls @ 200 mls/hr IV Q24H ANUM; Protocol Azithromycin (Zithromax/Ns) 500 mg in 250 mls @ 250 mls/hr IV Q24H ANUM; Protocol Piperacillin Sod/Tazobactam Sod (Zosyn/Ns 4.5gm/100ml) 4.5 gm in 100 mls @ 200 mls/hr IV Q8H ANUM; Protocol Metronidazole (Flagyl 500 Mg/100 Ml) 500 mg in 100 mls @ 200 mls/hr IV Q8H ANUM; Protocol Levothyroxine Sodium (Levothyroxine 50 Mcg Tab) 50 mcg PO QAM@0600 ANUM Nitroglycerin (Nitroglycerin 0.4 Mg Tab Subl) 0.4 mg SL Q5M PRN PRN Reason: Chest Pain Ondansetron HCl (Ondansetron 4 Mg/2 Ml Inj) 4 mg IV Q8H PRN PRN Reason: Nausea And Vomiting Pantoprazole Sodium (Pantoprazole 40 Mg Inj) 40 mg IV BID ANUM Phenytoin (Phenytoin 100 Mg Capsule.Er) 100 mg PO Q8HR ANUM Sertraline HCl (Sertraline 50 Mg Tab) 50 mg PO QDAY ANUM Sodium Chloride (Sodium Chloride 0.9% 10 Ml Flush Syringe) 10 ml IV BID ANUM Sodium Chloride (Sodium Chloride 0.9% 10 Ml Flush Syringe) 10 ml IV PRN PRN PRN Reason: LINE FLUSH Tramadol HCl (Tramadol 50 Mg Tab) 50 mg PO Q6H PRN PRN Reason: Pain, Moderate (4-6) Review of Systems ROS unobtainable: due to endotracheal tube Exam Vital Signs Pulse 130 H 08/22/20 17:08 - General physical appearance Positive: cathetic - Respiratory Positive: other (Intubated with agonal breathing on ventilator) - Cardiovascular Heart Sounds: Present: S1 & S2 - Extremities Extremity abnormal: other (Cold extremities) - Abdomen Abdomen: Present: soft, distended Results - Labs 08/22/20 18:17 08/22/20 18:17 Abnormal lab results 08/22/20 08/22/20 08/22/20 Range/Units 17:46 17:53 18:17 RBC 3.60 L (3.65-5.03) M/mm3 Plt Count 97 L (140-440) K/mm3 Seg Neuts % (Manual) 80.0 H (40.0-70.0) % Lymphocytes % (Manual) 13.0 L (13.4-35.0) % Lymphocytes # (Manual) 1.0 L (1.2-5.4) K/mm3 PT (12.2-14.9) Sec. INR (0.87-1.13) APTT (24.2-36.6) Sec. Chloride (98-107) mmol/L Carbon Dioxide (22-30) mmol/L BUN (7-17) mg/dL Creatinine (0.6-1.2) mg/dL Glucose (65-100) mg/dL POC Glucose < 10 L < 10 L (70-105) mg/dL Lactic Acid (0.7-2.0) mmol/L Calcium (8.4-10.2) mg/dL AST (5-40) units/L ALT (7-56) units/L Alkaline Phosphatase (35-129) units/L Total Creatine Kinase (30-135) units/L CK-MB (CK-2) (0.0-4.0) ng/mL NT-Pro-B Natriuret Pep (0-900) pg/mL Total Protein (6.3-8.2) g/dL Albumin (3.9-5) g/dL Lipase (13-60) units/L TSH (0.270-4.200) mlU/mL Urine WBC (Auto) (0.0-6.0) /HPF U Epithel Cells (Auto) (0-13.0) /HPF Phenytoin (10.0-20.0) ug/mL 08/22/20 08/22/20 08/22/20 Range/Units 18:17 18:17 18:17 RBC (3.65-5.03) M/mm3 Plt Count (140-440) K/mm3 Seg Neuts % (Manual) (40.0-70.0) % Lymphocytes % (Manual) (13.4-35.0) % Lymphocytes # (Manual) (1.2-5.4) K/mm3 PT 34.0 H (12.2-14.9) Sec. INR 3.35 H (0.87-1.13) APTT 190.7 H* (24.2-36.6) Sec. Chloride 94.7 L (98-107) mmol/L Carbon Dioxide 13 L (22-30) mmol/L BUN 49 H (7-17) mg/dL Creatinine 3.4 H (0.6-1.2) mg/dL Glucose 808 H* (65-100) mg/dL POC Glucose (70-105) mg/dL Lactic Acid 14.10 H* (0.7-2.0) mmol/L Calcium 7.3 L (8.4-10.2) mg/dL AST 253 H (5-40) units/L ALT 119 H (7-56) units/L Alkaline Phosphatase 145 H (35-129) units/L Total Creatine Kinase 364 H (30-135) units/L CK-MB (CK-2) 6.6 H (0.0-4.0) ng/mL NT-Pro-B Natriuret Pep 3839 H (0-900) pg/mL Total Protein 4.5 L (6.3-8.2) g/dL Albumin 2.3 L (3.9-5) g/dL Lipase 10 L (13-60) units/L TSH (0.270-4.200) mlU/mL Urine WBC (Auto) (0.0-6.0) /HPF U Epithel Cells (Auto) (0-13.0) /HPF Phenytoin (10.0-20.0) ug/mL 08/22/20 08/22/20 08/22/20 Range/Units 18:17 18:17 19:08 RBC (3.65-5.03) M/mm3 Plt Count (140-440) K/mm3 Seg Neuts % (Manual) (40.0-70.0) % Lymphocytes % (Manual) (13.4-35.0) % Lymphocytes # (Manual) (1.2-5.4) K/mm3 PT (12.2-14.9) Sec. INR (0.87-1.13) APTT (24.2-36.6) Sec. Chloride (98-107) mmol/L Carbon Dioxide (22-30) mmol/L BUN (7-17) mg/dL Creatinine (0.6-1.2) mg/dL Glucose (65-100) mg/dL POC Glucose (70-105) mg/dL Lactic Acid 13.00 H* (0.7-2.0) mmol/L Calcium (8.4-10.2) mg/dL AST (5-40) units/L ALT (7-56) units/L Alkaline Phosphatase (35-129) units/L Total Creatine Kinase (30-135) units/L CK-MB (CK-2) (0.0-4.0) ng/mL NT-Pro-B Natriuret Pep (0-900) pg/mL Total Protein (6.3-8.2) g/dL Albumin (3.9-5) g/dL Lipase (13-60) units/L TSH 11.260 H (0.270-4.200) mlU/mL Urine WBC (Auto) (0.0-6.0) /HPF U Epithel Cells (Auto) (0-13.0) /HPF Phenytoin 1.8 L (10.0-20.0) ug/mL 08/22/20 08/22/20 Range/Units 21:11 Unknown RBC (3.65-5.03) M/mm3 Plt Count (140-440) K/mm3 Seg Neuts % (Manual) (40.0-70.0) % Lymphocytes % (Manual) (13.4-35.0) % Lymphocytes # (Manual) (1.2-5.4) K/mm3 PT (12.2-14.9) Sec. INR (0.87-1.13) APTT (24.2-36.6) Sec. Chloride (98-107) mmol/L Carbon Dioxide (22-30) mmol/L BUN (7-17) mg/dL Creatinine (0.6-1.2) mg/dL Glucose (65-100) mg/dL POC Glucose (70-105) mg/dL Lactic Acid 10.50 H* (0.7-2.0) mmol/L Calcium (8.4-10.2) mg/dL AST (5-40) units/L ALT (7-56) units/L Alkaline Phosphatase (35-129) units/L Total Creatine Kinase (30-135) units/L CK-MB (CK-2) (0.0-4.0) ng/mL NT-Pro-B Natriuret Pep (0-900) pg/mL Total Protein (6.3-8.2) g/dL Albumin (3.9-5) g/dL Lipase (13-60) units/L TSH (0.270-4.200) mlU/mL Urine WBC (Auto) 30.0 H (0.0-6.0) /HPF U Epithel Cells (Auto) 24.0 H (0-13.0) /HPF Phenytoin (10.0-20.0) ug/mL Diabetes panel 08/22/20 Range/Units 18:17 Sodium 141 (137-145) mmol/L Potassium 4.3 (3.6-5.0) mmol/L Chloride 94.7 L (98-107) mmol/L Carbon Dioxide 13 L (22-30) mmol/L BUN 49 H (7-17) mg/dL Creatinine 3.4 H (0.6-1.2) mg/dL Glucose 808 H* (65-100) mg/dL Calcium 7.3 L (8.4-10.2) mg/dL AST 253 H (5-40) units/L ALT 119 H (7-56) units/L Alkaline Phosphatase 145 H (35-129) units/L Total Protein 4.5 L (6.3-8.2) g/dL Albumin 2.3 L (3.9-5) g/dL Thyroid panel 08/22/20 Range/Units 18:17 TSH 11.260 H (0.270-4.200) mlU/mL Calcium panel 08/22/20 Range/Units 18:17 Calcium 7.3 L (8.4-10.2) mg/dL Albumin 2.3 L (3.9-5) g/dL Pituitary panel 08/22/20 08/22/20 Range/Units 18:17 18:17 Sodium 141 (137-145) mmol/L Potassium 4.3 (3.6-5.0) mmol/L Chloride 94.7 L (98-107) mmol/L Carbon Dioxide 13 L (22-30) mmol/L BUN 49 H (7-17) mg/dL Creatinine 3.4 H (0.6-1.2) mg/dL Glucose 808 H* (65-100) mg/dL Calcium 7.3 L (8.4-10.2) mg/dL TSH 11.260 H (0.270-4.200) mlU/mL Adrenal panel 08/22/20 Range/Units 18:17 Sodium 141 (137-145) mmol/L Potassium 4.3 (3.6-5.0) mmol/L Chloride 94.7 L (98-107) mmol/L Carbon Dioxide 13 L (22-30) mmol/L BUN 49 H (7-17) mg/dL Creatinine 3.4 H (0.6-1.2) mg/dL Glucose 808 H* (65-100) mg/dL Calcium 7.3 L (8.4-10.2) mg/dL Total Bilirubin 0.70 (0.1-1.2) mg/dL AST 253 H (5-40) units/L ALT 119 H (7-56) units/L Alkaline Phosphatase 145 H (35-129) units/L Total Protein 4.5 L (6.3-8.2) g/dL Albumin 2.3 L (3.9-5) g/dL - Imaging CT scan - abdomen: report reviewed, image reviewed CT scan - chest: report reviewed, image reviewed Assessment and Plan 85-year-old female with perforated viscus. Patient with clinical evidence of visceral perforation. Unstable requiring ventilator support, and vasopressor support. Patient is status post cardiac arrest likely due to sepsis from underlying abdominal pathology. Prognosis is very poor. Discussed with the patient's daughter at length the grim clinical picture, and there is a very high chance she may not survive the procedure, or recovery. The daughter has decided to consent to have the procedure performed for chance of saving her mother's life. Patient signed informed consent for emergent exploratory laparotomy, possible bowel resection possible ostomy, possible open abdomen.
--- NOTE | 2020-08-22 22:54 | Anesthesia Consultation ---
Anesthesia Consult and Med Hx Date of service: 08/22/20 - Airway Intubation Access Assessment: Good (Pt intubated) - Cardiac Exam Anesthetic Concerns: Pt s/p cardiac code in ECC. currently on 2 pressors (dopamine, norepi, vasopressin) - Pre-Operative Health Status ASA Pre-Surgery Classification: ASA4, Emergency Proposed Anesthetic Plan: General - Cardiovascular System Hx Hypertension: Yes Hx Coronary Artery Disease: Yes - Central Nervous System Hx Seizures: Yes CVA: Yes - Endocrine Hx Hypothyroidism: Yes - Additional Comments Anesthesia Medical History Comments: Pt is a full code, to OR for 'free air in bowel'. Emergency blood ordered to OR.
--- NOTE | 2020-08-22 22:57 | Progress Note ---
Subjective Date of service: 08/22/20 Principal diagnosis: 'free air in bowel' Objective - Constitutional Vitals: Vital Signs - 12hr 08/22/20 08/22/20 08/22/20 17:08 17:15 17:31 Temperature Pulse Rate 130 H 118 H 167 H Respiratory 28 H 16 Rate Blood Pressure 54/31 57/37 O2 Sat by Pulse Oximetry 08/22/20 08/22/20 08/22/20 17:45 18:01 18:12 Temperature Pulse Rate 133 H 117 H 112 H Respiratory 75 H 18 Rate Blood Pressure 57/37 141/33 O2 Sat by Pulse 97 Oximetry 08/22/20 08/22/20 08/22/20 18:15 18:31 18:45 Temperature 98.2 F Pulse Rate 92 H 83 90 Respiratory 20 20 21 Rate Blood Pressure 82/22 64/11 93/51 O2 Sat by Pulse 100 Oximetry 08/22/20 08/22/20 08/22/20 19:01 19:15 19:31 Temperature Pulse Rate 90 87 81 Respiratory 22 18 18 Rate Blood Pressure 91/22 88/13 119/34 O2 Sat by Pulse 100 79 L 96 Oximetry 08/22/20 08/22/20 08/22/20 19:40 19:49 20:00 Temperature Pulse Rate 85 78 84 Respiratory 11 L 12 14 Rate Blood Pressure 107/38 119/35 O2 Sat by Pulse 80 L 96 Oximetry - Labs CBC & Chem 7: 08/22/20 18:17 08/22/20 18:17 Labs: Abnormal lab results 08/22/20 08/22/20 08/22/20 Range/Units 17:46 17:53 18:17 RBC 3.60 L (3.65-5.03) M/mm3 Plt Count 97 L (140-440) K/mm3 Seg Neuts % (Manual) 80.0 H (40.0-70.0) % Lymphocytes % (Manual) 13.0 L (13.4-35.0) % Lymphocytes # (Manual) 1.0 L (1.2-5.4) K/mm3 PT (12.2-14.9) Sec. INR (0.87-1.13) APTT (24.2-36.6) Sec. Chloride (98-107) mmol/L Carbon Dioxide (22-30) mmol/L BUN (7-17) mg/dL Creatinine (0.6-1.2) mg/dL Glucose (65-100) mg/dL POC Glucose < 10 L < 10 L (70-105) mg/dL Lactic Acid (0.7-2.0) mmol/L Calcium (8.4-10.2) mg/dL AST (5-40) units/L ALT (7-56) units/L Alkaline Phosphatase (35-129) units/L Total Creatine Kinase (30-135) units/L CK-MB (CK-2) (0.0-4.0) ng/mL NT-Pro-B Natriuret Pep (0-900) pg/mL Total Protein (6.3-8.2) g/dL Albumin (3.9-5) g/dL Lipase (13-60) units/L TSH (0.270-4.200) mlU/mL Urine WBC (Auto) (0.0-6.0) /HPF U Epithel Cells (Auto) (0-13.0) /HPF Phenytoin (10.0-20.0) ug/mL 08/22/20 08/22/20 08/22/20 Range/Units 18:17 18:17 18:17 RBC (3.65-5.03) M/mm3 Plt Count (140-440) K/mm3 Seg Neuts % (Manual) (40.0-70.0) % Lymphocytes % (Manual) (13.4-35.0) % Lymphocytes # (Manual) (1.2-5.4) K/mm3 PT 34.0 H (12.2-14.9) Sec. INR 3.35 H (0.87-1.13) APTT 190.7 H* (24.2-36.6) Sec. Chloride 94.7 L (98-107) mmol/L Carbon Dioxide 13 L (22-30) mmol/L BUN 49 H (7-17) mg/dL Creatinine 3.4 H (0.6-1.2) mg/dL Glucose 808 H* (65-100) mg/dL POC Glucose (70-105) mg/dL Lactic Acid 14.10 H* (0.7-2.0) mmol/L Calcium 7.3 L (8.4-10.2) mg/dL AST 253 H (5-40) units/L ALT 119 H (7-56) units/L Alkaline Phosphatase 145 H (35-129) units/L Total Creatine Kinase 364 H (30-135) units/L CK-MB (CK-2) 6.6 H (0.0-4.0) ng/mL NT-Pro-B Natriuret Pep 3839 H (0-900) pg/mL Total Protein 4.5 L (6.3-8.2) g/dL Albumin 2.3 L (3.9-5) g/dL Lipase 10 L (13-60) units/L TSH (0.270-4.200) mlU/mL Urine WBC (Auto) (0.0-6.0) /HPF U Epithel Cells (Auto) (0-13.0) /HPF Phenytoin (10.0-20.0) ug/mL 08/22/20 08/22/20 08/22/20 Range/Units 18:17 18:17 19:08 RBC (3.65-5.03) M/mm3 Plt Count (140-440) K/mm3 Seg Neuts % (Manual) (40.0-70.0) % Lymphocytes % (Manual) (13.4-35.0) % Lymphocytes # (Manual) (1.2-5.4) K/mm3 PT (12.2-14.9) Sec. INR (0.87-1.13) APTT (24.2-36.6) Sec. Chloride (98-107) mmol/L Carbon Dioxide (22-30) mmol/L BUN (7-17) mg/dL Creatinine (0.6-1.2) mg/dL Glucose (65-100) mg/dL POC Glucose (70-105) mg/dL Lactic Acid 13.00 H* (0.7-2.0) mmol/L Calcium (8.4-10.2) mg/dL AST (5-40) units/L ALT (7-56) units/L Alkaline Phosphatase (35-129) units/L Total Creatine Kinase (30-135) units/L CK-MB (CK-2) (0.0-4.0) ng/mL NT-Pro-B Natriuret Pep (0-900) pg/mL Total Protein (6.3-8.2) g/dL Albumin (3.9-5) g/dL Lipase (13-60) units/L TSH 11.260 H (0.270-4.200) mlU/mL Urine WBC (Auto) (0.0-6.0) /HPF U Epithel Cells (Auto) (0-13.0) /HPF Phenytoin 1.8 L (10.0-20.0) ug/mL 08/22/20 08/22/20 Range/Units 21:11 Unknown RBC (3.65-5.03) M/mm3 Plt Count (140-440) K/mm3 Seg Neuts % (Manual) (40.0-70.0) % Lymphocytes % (Manual) (13.4-35.0) % Lymphocytes # (Manual) (1.2-5.4) K/mm3 PT (12.2-14.9) Sec. INR (0.87-1.13) APTT (24.2-36.6) Sec. Chloride (98-107) mmol/L Carbon Dioxide (22-30) mmol/L BUN (7-17) mg/dL Creatinine (0.6-1.2) mg/dL Glucose (65-100) mg/dL POC Glucose (70-105) mg/dL Lactic Acid 10.50 H* (0.7-2.0) mmol/L Calcium (8.4-10.2) mg/dL AST (5-40) units/L ALT (7-56) units/L Alkaline Phosphatase (35-129) units/L Total Creatine Kinase (30-135) units/L CK-MB (CK-2) (0.0-4.0) ng/mL NT-Pro-B Natriuret Pep (0-900) pg/mL Total Protein (6.3-8.2) g/dL Albumin (3.9-5) g/dL Lipase (13-60) units/L TSH (0.270-4.200) mlU/mL Urine WBC (Auto) 30.0 H (0.0-6.0) /HPF U Epithel Cells (Auto) 24.0 H (0-13.0) /HPF Phenytoin (10.0-20.0) ug/mL
[2020-08-22] MEDS ORDERED: INSULIN REGULAR, HUMAN 100 UNITS/1 ML SUB-Q SCH (23:00)
[2020-08-22] MEDS ORDERED: PIPERACIL/TAZOBACTA 4.5/NS 100 4.5 GM/100 ML VIAL IV SCH (23:00)
[2020-08-22] MEDS ORDERED: PIPERACIL-TAZO 2.25 GM/50 ML 2.25 GM/50 ML BAG IV SCH (23:00)
[2020-08-22] MEDS ORDERED: AZITHROMYCIN/NS 500 MG/250 ML 500 MG/250 ML BAG IV SCH (23:00)
[2020-08-22 23:12] LABS: Hematocrit 34.6 % (30.3-42.9); Hemoglobin 11.5 gm/dl (10.1-14.3); Mean Corpuscular HGB Conc 33 % (30-34); Mean Corpuscular Volume 92 fl (79-97); Red Blood Count 3.76 M/mm3 (3.65-5.03); Red Cell Distribution Width 14.5 % (13.2-15.2)
[2020-08-22 23:53] LABS: Platelet Count 114 K/mm3 (140-440)
--- NOTE | 2020-08-23 00:59 | Operative Report ---
Operative Report Operative Report: Date: August 23, 2020 Surgeon: Dwight Cortez MD Nurse Sitter surgeon: Julita Nath DO Procedure:1. Exploratory laparotomy, 2. Resection of transverse colon, 3. ABThera abdominal wound VAC placement Preop diagnosis: Perforated viscus Postop diagnosis: Perforated transverse colon Anesthesia:GETA Indication: Patient is an 85-year-old female who presented to the emergency room with a several day history of abdominal pain. Patient was obtunded and in cardiac arrest and ACLS protocol was initiated and she was intubated. She was resuscitated and a CT scan of her abdomen and pelvis was obtained that showed significant amount of free air suggestive of perforation. Consent was obtained for daughter for exploratory laparotomy. Details of procedure: Patient was brought into the OR suite laid in supine position. Bilateral lower extremity SCDs were placed. General anesthesia was induced and 2 previously placed ET tube was maintained. Patient abdomen was prepped and draped in sterile fashion. After a timeout, a 10 blade scalpel was used to make a vertical midline incision. Electrocautery was used to dissect down through the subcutaneous tissue into the peritoneal cavity. There is noted to be significant foul-smelling fluid. There was noted to be twisting of the transverse colon around the omentum and scarred to the left upper quadrant. There is also noted to be a hole in the transverse colon by the splenic flexure. An Enseal device was used to take down the gastrocolic ligament. The proximal colon was transected with a 75 cm SUSANA just distal to the hepatic flexure. The lateral attachments of the descending colon were released. The transverse colon was then released out of the left upper quadrant was noted to be torsed on itself twice 360 degrees. This area of colon was noted to be ischemic with a perforation and free spillage of liquid stool. The distal segment of colon was transected distal to the splenic flexure. The mesentery was then transected with an Enseal device. The transverse colon was then sent off the table as specimen. The stomach was inspected, and the small bowel was run from the ligament of Treitz to the terminal ileum and found to be without perforation but with patchy areas of mild ischemia.. At this time because the patient is unstable on 3 pressors we decided to wash the abdominal cavity out and placed an ABThera wound VAC. The plan is to return to the OR in 2 days if the patient is stable for reevaluation of her small bowel and remaining colon. Decision will be made at that time for anastomosis versus colostomy. Patient was transferred to ICU in critical condition all counts were correct. Specimen: Transverse colon Findings: Perforated transverse colon that was volvulized on itself.
[2020-08-23] MEDS ORDERED: EPINEPHrine 1 MG/10 ML SYRINGE ONE (01:00)
[2020-08-23] MEDS ORDERED: SODIUM BICARB 8.4% 50 MEQ/50 ML SYRINGE IV ONE (01:00)
[2020-08-23] MEDS ORDERED: DOPamine/D5W 800 MG/250 ML DRIP IV ONE (01:00)
[2020-08-23 01:03] VITALS: BP 99/73
[2020-08-23] MEDS ORDERED: SODIUM CHLORIDE 0.9% IRR 1,500 ML BOTTLE IR ONE (01:17)
[2020-08-23] MEDS ORDERED: SODIUM CHLORIDE 0.9% 1000 ML 1,000 ML IV ONE (01:29)
[2020-08-23] MEDS ORDERED: PHENYLEPHRINE 10 MG/1 ML INJ SDV IV SCH (01:30)
[2020-08-23] MEDS ORDERED: PHENYLEPHRINE 100 MG in SODIUM CHLORIDE 0.9% 90 ML IV SCH (01:45)
[2020-08-23] MEDS ORDERED: IPRATROPIUM/ALBUTEROL SULFATE 3 ML AMPUL.NEB IH SCH (02:00)
--- NOTE | 2020-08-23 02:26 | Death Note ---
Note Date of : 08/23/20 Time of : 02:16 Time Pronounced: 02:20 - Preliminary Cause of (problem) (1) Bowel perforation Preliminary cause of (2) Acute metabolic encephalopathy Preliminary cause of (3) Cardiac arrest Preliminary cause of Patient is coded again. This is the third code. Patient was given CPR as per ACLS protocol for about 20-25 minutes. 7 epi 2 bicarb was given.. Patient was given 3 times shock 200 J again 200 J and then 360 J. But patient failed to regain ROSC. Patient at 2. 1 6 AM on 08/23/2020 due to cardiopulmonary arrest. Bowel perforation, acute metabolic encephalopathy, pneumonia. Patient had a poor prognosis. Patient is status post surgery. Daughter and family is notified (4) Pneumonia Preliminary cause of (5) Seizure Preliminary cause of (6) HTN (hypertension) Preliminary cause of (7) History of CVA (cerebrovascular accident) Preliminary cause of (8) DENISE (acute kidney injury) Preliminary cause of (9) DVT prophylaxis Preliminary cause of
[2020-08-23 03:00] LABS: Total Cells Counted 100
[2020-08-23 03:02] LABS: Anisocytosis 1+; Platelet Estimate Consistent w Auto
[2020-08-23] MEDS ORDERED: LEVOTHYROXINE 50 MCG TAB PO SCH (06:00)
[2020-08-23] MEDS ORDERED: PHENYTOIN 100 MG CAPSULE.ER PO SCH (06:00)
[2020-08-23] MEDS ORDERED: metroNIDAZOLE/NS 500 MG/100 ML 500 MG/100 ML BAG IV SCH (06:00)
[2020-08-23] MEDS ORDERED: SERTRALINE 50 MG TAB PO SCH (10:00)
[2020-08-23] MEDS ORDERED: PANTOPRAZOLE 40 MG INJ IV SCH (10:00)
[2020-08-23] MEDS ORDERED: amLODIPine 5 MG TAB PO SCH (10:00)
[2020-08-23] MEDS ORDERED: cefTRIAXone/NS 2 GM/100 ML 2 GM/100 ML BAG IV SCH (18:00)
--- NOTE | 2020-08-28 10:42 | Electrocardiograph Report ---
[facility] Test Date: 2020-08-22 Test Time: 18:05:01 Pat Name: CAMACHO CORDON Department: Room: A263 1 Gender: F Card Clothier: ZORA : [id number] Requested By: ANNY BARRETT Order Number: [id number] Reading MD: Todd Reyez Measurements Intervals [place] Rate: 107 P: 80 [place]: 140 QRS: 16 QRSD: 81 T: 260 QT: 375 QTc: 501 Interpretive Statements Sinus tachycardia Probable left atrial enlargement Repol abnrm suggests ischemia, anterolateral Prolonged QT interval Compared to ECG 06/04/2020 01:43:58 Early repolarization now present Possible ischemia now present Prolonged QT interval now present Electronically Signed On 08-28-2020 10:41:57 EDT by Todd Reyez
== END 2020-08-23 02:16 | DRG 329 ==
LOC: ED 16:52 → CC1 22:02
PROVIDERS: ADMIT Hospitalist; ATTEND Hospitalist
PROC: 06HY33Z Insertion of Infusion Device into Lower Vein, Percutaneous Approach (ICD-10-PCS; principal; 2020-08-23)
PROC: 0DTL0ZZ Resection of Transverse Colon, Open Approach (ICD-10-PCS; 2020-08-23)
PROC: 0DJ00ZZ Inspection of Upper Intestinal Tract, Open Approach (ICD-10-PCS; 2020-08-23)
PROC: 0BH17EZ Insertion of Endotracheal Airway into Trachea, Via Natural or Artificial Opening (ICD-10-PCS; 2020-08-23)
PROC: 5A1935Z Respiratory Ventilation, Less than 24 Consecutive Hours (ICD-10-PCS; 2020-08-23)
DX: K63.1 Perforation of intestine (nontraumatic) (principal); G93.41 Metabolic encephalopathy; J18.9 Pneumonia, unspecified organism; N17.9 Acute kidney failure, unspecified; R56.9 Unspecified convulsions; F32.9 Major depressive disorder, single episode, unspecified; E03.9 Hypothyroidism, unspecified; F03.90 Unspecified dementia, unspecified severity, without behavioral disturbance, psychotic disturbance, mood disturbance, and anxiety; I46.9 Cardiac arrest, cause unspecified; I25.10 Atherosclerotic heart disease of native coronary artery without angina pectoris; I10 Essential (primary) hypertension; E87.6 Hypokalemia; Z79.899 Other long term (current) drug therapy; Z79.891 Long term (current) use of opiate analgesic; Z79.01 Long term (current) use of anticoagulants; Z86.73 Personal history of transient ischemic attack (TIA), and cerebral infarction without residual deficits; Z79.82 Long term (current) use of aspirin
CPT/HCPCS: 36415; 71045; 74176; 80053; 80185; 81001; 82140; 82550; 82553; 82962; 83690; 83880; 84439; 84443; 84484; 85007; 85025; 85610; 85730; 87040; 87086; 88307; 93005; 94002; G0378; J0171; J0282; J0330; J0696; J1265; J7030; J7060; Q2009